=== PATIENT | male | born 2000 | race Caucasian/White ===

== ENCOUNTER 2022-07-09 21:46 | Emergency (ER) | payer OTHER ==
--- NOTE | 2022-07-09 22:06 | ED Physician Documentation ---
History of Present Illness - Stated complaint Stated Complaint: FOOD STUCK IN ESOPHAGUS - Chief complaint Chief Complaint: General - History obtained from History obtained from: Patient - History of Present Illness Timing: Today - Additonal information Additional information: HPI from patient. Patient complains of food bolus impaction in his esophagus. Patient says that approximately 5 PM this afternoon while eating chicken, he had just swallowed a piece of chicken and felt that it got stuck low down in his esophagus. He has had this problem before several times although only had to go to emergency department once before; this was five years ago and the food bolus was removed via endoscopy. The other episodes have been self-limited until tonight. Patient is not able to handle his own secretions. He has tried swallowing water several times and each time the water does not pass, and he ends up vomiting the water back up. Despite this, he denies any significant painful discomfort. Review of Systems GI: denies: Abdominal Pain PD PAST MEDICAL HISTORY - Past Medical History Past Medical History: No - Present Medications Home Medications: Ambulatory Orders Medication Instructions Recorded Confirmed No Known Home Medications 07/09/22 07/09/22 - Allergies Allergies/Adverse Reactions: Allergies Allergy/AdvReac Type Severity Reaction Status Date / Time Penicillins Allergy Anaphylaxis Verified 07/09/22 21:52 PD ED PE NORMAL - Vitals Vital signs reviewed: Yes - General General: Alert and oriented X 3, Well developed/nourished, Other (frequently spitting saliva into emesis bag but otherwise not in obvious distress) - HEENT HEENT: Moist mucous membranes - Cardiac Cardiac: RRR, No murmur - Respiratory Respiratory: No respiratory distress, Clear bilaterally - Abdomen Abdomen: Soft, Non tender, Non distended Results - Vitals Vitals: Vital Signs - 24 hr 07/10/22 01:57 Temperature 37.0 C Heart Rate 95 Respiratory 17 Rate Blood Pressure 140/72 H O2 Saturation 96 Oxygen O2 Source Room air PD Medical Decision Making - ED course Complexity details: re-evaluated patient, considered differential, d/w patient ED course: IV established and patient is given 1 mg of glucagon IV; this did not have any effect on his symptoms nor his ability to swallow his own secretions. I discussed this case with Dr. Bowling (on-call surgeon for [facility]). He says that he will take patient to the OR later in the morning, likely no earlier than 9:30 AM, and patient will be held in the emergency department until then. I relayed this information to the patient and he is comfortable with waiting in the emergency department until the obstruction passes or the endoscopic procedure if it does not. Patient offered pain medication and he declines. Approximately 3.5 hours into ED stay, patient had episode of emesis and reports he vomited up the food. He feels resolution of the sensation of obstruction, is able to tolerate PO liquids without difficulty or discomfort. Discharged home, instructed to seek follow up with GI for reevaluation, given that these episodes are occurring with increasing frequency (per patient). Departure - Departure Disposition: 01 Home, Self Care Clinical Impression: Food impaction of esophagus Condition: Good Instructions: ED Foreign Body Esophageal Rslv Comments: Follow-up with your primary care provider, next available appointment. Discharge Date/Time: 07/10/22 01:58
[2022-07-09] MEDS ORDERED: GLUCAGON 1 MG/ML VIAL IVP STA (22:17)
[2022-07-10] MEDS ORDERED: SODIUM CHLORIDE 0.9% 1,000 ML IV STA (00:06)
[2022-07-10 01:58] VITALS: BP 140/72
== END 2022-07-10 01:58 | disposition home or self-care (01) ==
LOC: ED 21:46
DX: T18.128A Food in esophagus causing other injury, initial encounter (principal); X58.XXXA Exposure to other specified factors, initial encounter
CPT/HCPCS: 96374; 99284

== ENCOUNTER 2023-12-27 10:17 | Outpatient (CLI) | payer OTHER | END 2023-12-27 10:18 | disposition home or self-care (01) | LOC: LAB 10:17 → FBP 10:24 → LAB 10:24 | PROVIDERS: ATTEND Family Medicine | DX: T75.4XXA Electrocution, initial encounter (principal); W86.8XXA Exposure to other electric current, initial encounter | CPT/HCPCS: 36415; 82550 ==